=== PATIENT | male | born 1975 | race American Indian/Alaskan Native ===

== ENCOUNTER 2016-12-16 17:40 | Emergency (ER) | payer OTHER ==
[2016-12-16 18:29] VITALS: BP 128/94
[2016-12-16] MEDS ORDERED: TORADOL IM ONE (23:20)
[2016-12-16] MEDS ORDERED: NORCO 5/325 PO ONE (23:20)
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
--- NOTE | 2016-12-16 23:58 | XRay Report ---
FINAL REPORT PROCEDURE: XR ELBOW 2V RT TECHNIQUE: RIGHT elbow radiographs, including AP and lateral views. HISTORY: rt elbow pain COMPARISON: No prior studies are available for comparison. FINDINGS: Fracture (s) and/or Dislocation(s): None . Alignment: Normal . Joint space(s): Normal . Soft tissues: Normal . Bone mineralization: Normal . Foreign bodies: None . IMPRESSION: Normal Examination
--- NOTE | 2016-12-16 23:59 | XRay Report ---
FINAL REPORT PROCEDURE: XR SPINE CERVICAL 2-3V TECHNIQUE: Cervical spine radiographs, AP, lateral, and open-mouth odontoid views. CPT 12754 HISTORY: low neck pain COMPARISON: No prior studies are available for comparison. FINDINGS: Prevertebral soft tissues: Normal . Alignment: Normal . Vertebral body heights/Disk spaces: Degenerative spurring. Fracture(s): None . Facets: Normal . Bone mineralization: Normal . IMPRESSION: Mild degenerative change. No fracture.
== END 2016-12-17 01:02 | disposition home or self-care (01) ==
LOC: ED 17:40
DX: M25.521 Pain in right elbow (principal); M54.2 Cervicalgia; M25.511 Pain in right shoulder; F17.200 Nicotine dependence, unspecified, uncomplicated; V89.2XXA Person injured in unspecified motor-vehicle accident, traffic, initial encounter; Y93.9 Activity, unspecified; Y99.9 Unspecified external cause status; Y92.410 Unspecified street and highway as the place of occurrence of the external cause
CPT/HCPCS: 72040; 73070; 96372; 99283; J1885